=== PATIENT | male | born 1945 | race Caucasian/White ===

== ENCOUNTER 2018-10-14 17:03 | Emergency (ER) | payer OTHER ==
[~2018-10-14 17:03] MED LIST: ALPH100C PO; ASPI-1012 PO; ATOR-2 PO; FINA5TAB41 PO; GABA-531 PO; LEVO500T2 PO; LIRA0.6P SQ; LISI-617 PO; MAGOX PO; METO25TA6 PO; OMEP-50 PO; SERT50TA12 PO; TAMS-1 PO; TIOT4MIS3 IH; VITA1TAB39 PO
[2018-10-14 18:22] LABS: BASOPHILS % (AUTO) 1.1 % (0.0-5.0); EOSINOPHILS % (AUTO) 2.8 % (0.0-8.0); HEMATOCRIT 29.7 % (42-54); LYMPHOCYTES % (AUTO) 17.4 % (21.0-51.0); MEAN CORPUSCULAR HEMOGLOBIN 30.8 pg (27.0-33.0); MEAN CORPUSCULAR HGB CONC 33.7 g/dL (32.0-36.0); MEAN CORPUSCULAR VOLUME 91.6 fL (79-99); MONOCYTES % (AUTO) 7.7 % (3.0-13.0); PLATELET COUNT (AUTO) 225 K/uL (130-400); RED BLOOD CELL COUNT(AUTO) 3.25 MIL/uL (4.50-6.20); RED CELL DISTRIBUTION WIDTH 15.4 % (11.0-15.5); WHITE BLOOD COUNT (AUTO) 8.9 K/uL (4.8-10.8)
[2018-10-14 18:32] LABS: CREATININE 1.3 mg/dL (0.5-1.5); POTASSIUM 4.5 mmol/L (3.5-5.1)
[2018-10-14 18:36] LABS: INR 1.04 (0.85-1.15); PARTIAL THROMBOPLASTIN TIME 27.6 SEC (26.3-35.5); PROTHROMBIN TIME 10.9 SEC (9.6-11.6)
[2018-10-14] MEDS ORDERED: CEPHALEXIN 500 MG CAPSULE ONE (19:02)
== END 2018-10-14 19:43 | disposition home or self-care (01) ==
LOC: EDH 17:03
DX: L76.32 Postprocedural hematoma of skin and subcutaneous tissue following other procedure (principal); R22.41 Localized swelling, mass and lump, right lower limb; E78.00 Pure hypercholesterolemia, unspecified; E11.9 Type 2 diabetes mellitus without complications; I25.10 Atherosclerotic heart disease of native coronary artery without angina pectoris; Z85.118 Personal history of other malignant neoplasm of bronchus and lung; Z95.1 Presence of aortocoronary bypass graft
CPT/HCPCS: 36415; 80048; 85025; 85610; 85730; 93970

== ENCOUNTER 2018-10-17 17:18 | Inpatient (IN) | payer OTHER ==
[~2018-10-17] VITALS: Ht 188 cm; Wt 93.6 kg
[2018-10-17 17:39] LABS: BASOPHILS % (AUTO) 0.9 % (0.0-5.0); EOSINOPHILS % (AUTO) 2.8 % (0.0-8.0); HEMATOCRIT 34.4 % (42-54); LYMPHOCYTES % (AUTO) 24.7 % (21.0-51.0); MEAN CORPUSCULAR HEMOGLOBIN 30.5 pg (27.0-33.0); MEAN CORPUSCULAR HGB CONC 33.3 g/dL (32.0-36.0); MEAN CORPUSCULAR VOLUME 91.5 fL (79-99); MONOCYTES % (AUTO) 9.1 % (3.0-13.0); NEUTROPHILS % (AUTO) 62.5 % (40.0-77.0); NUCLEATED RED BLOOD CELLS 0.1 % (0.0-0.19); PLATELET COUNT (AUTO) 267 K/uL (130-400); RED BLOOD CELL COUNT(AUTO) 3.76 MIL/uL (4.50-6.20); RED CELL DISTRIBUTION WIDTH 15.7 % (11.0-15.5); WHITE BLOOD COUNT (AUTO) 7.9 K/uL (4.8-10.8)
[2018-10-17 17:50] LABS: CREATININE 1.3 mg/dL (0.5-1.5); POTASSIUM 4.2 mmol/L (3.5-5.1)
[2018-10-17 17:55] LABS: BILIRUBIN,TOTAL 0.5 mg/dL (0.2-1.0)
[2018-10-17 17:59] LABS: B-TYPE NATRIURETIC PEPTIDE 596 pg/mL (0-100)
[2018-10-17] MEDS ORDERED: SODIUM CHLORIDE 0.9% 1000ML 1,000 ML IV ONE (17:59)
[2018-10-17 20:39] LABS: APPEARANCE,URINE Clear (CLEAR); BILIRUBIN,URINE Negative (NEGATIVE); COLOR,URINE Dark Yellow (YELLOW); GLUCOSE, URINE (UA) Negative (NEGATIVE); KETONES,URINE Negative (NEGATIVE); LEUKOCYTE ESTERASE ,URINE Negative (NEGATIVE); NITRATE,URINE Negative (NEGATIVE); OCCULT BLOOD,URINE Negative (NEGATIVE); PROTEIN,URINE Negative (NEGATIVE)
[2018-10-17 23:30] VITALS: BP 141/78
[2018-10-17] MEDS ORDERED: KEFLEX PO (23:58)
[2018-10-18] MEDS ORDERED: MORPHINE SULFATE 2 MG/ML 1ML SYG IV PRN (02:45)
[2018-10-18] MEDS ORDERED: SODIUM CHLORIDE 0.9% 1000ML 1,000 ML IV SCH ×2 (02:45→04:45)
[2018-10-18] MEDS ORDERED: MORPHINE SULFATE 4 MG/1ML SYG IV PRN (02:45)
[2018-10-18 04:00] VITALS: BP 135/86
[2018-10-18] MEDS ORDERED: POTASSIUM CHLORIDE 20MEQ/100ML 100 ML IV PRN (04:30)
[2018-10-18] MEDS ORDERED: FUROSEMIDE 10 MG/ML 4ML VIAL IV SCH ×2 (04:30→08:00)
[2018-10-18] MEDS ORDERED: POTASSIUM CHLORIDE 20 MEQ ERTAB PO PRN (04:30)
[2018-10-18] MEDS ORDERED: LIDOCAINE HCL-MPF 1% 2ML VIAL IV PRN (04:30)
[2018-10-18] MEDS ORDERED: POTASSIUM CHLORIDE 10% ELIXIR 20 MEQ/15 ML UDCUP PO PRN (04:30)
[2018-10-18] MEDS ORDERED: ONDANSETRON HCL 4 MG/2 ML VIAL IVP PRN (04:45)
[2018-10-18 05:56] LABS: BASOPHILS % (AUTO) 1.1 % (0.0-5.0); EOSINOPHILS % (AUTO) 3.5 % (0.0-8.0); HEMATOCRIT 32.4 % (42-54); MEAN CORPUSCULAR HEMOGLOBIN 30.8 pg (27.0-33.0); MEAN CORPUSCULAR HGB CONC 34.1 g/dL (32.0-36.0); MEAN CORPUSCULAR VOLUME 90.3 fL (79-99); MONOCYTES % (AUTO) 10.6 % (3.0-13.0); NEUTROPHILS % (AUTO) 59.8 % (40.0-77.0); PLATELET COUNT (AUTO) 234 K/uL (130-400); RED BLOOD CELL COUNT(AUTO) 3.59 MIL/uL (4.50-6.20); RED CELL DISTRIBUTION WIDTH 15.5 % (11.0-15.5)
[2018-10-18 06:12] LABS: ALBUMIN 2.4 g/dL (3.5-5.0); BILIRUBIN,TOTAL 0.4 mg/dL (0.2-1.0); CREATININE 1.1 mg/dL (0.5-1.5); POTASSIUM 4.2 mmol/L (3.5-5.1); TOTAL PROTEIN, SERUM 6.1 g/dL (6.0-8.3)
[2018-10-18] MEDS: IPRATROPIUM/ALBUTEROL SULFATE 3 ML SOLUTION IH SCH ×3 (06:12→23:55)
[2018-10-18 06:29] LABS: B-TYPE NATRIURETIC PEPTIDE 704 pg/mL (0-100)
[2018-10-18 07:00] VITALS: BP 145/90
[2018-10-18] MEDS ORDERED: METOPROLOL TARTRATE 25 MG TAB PO SCH (09:00)
[2018-10-18 11:00] VITALS: BP 143/96
[2018-10-18] MEDS ORDERED: METF-446 PO (11:22)
[2018-10-18] MEDS ORDERED: ASCO10007 PO (11:22)
[2018-10-18] MEDS ORDERED: MECL-111 PO (11:22)
[2018-10-18] MEDS ORDERED: CALC600T12 PO (11:22)
[2018-10-18] MEDS ORDERED: CHRO1000 PO (11:22)
[2018-10-18] MEDS ORDERED: INSLAN SQ (11:22)
--- NOTE | 2018-10-18 11:30 | NUR ---
NOTE PATIENT IS OT OF ROOM FOR VQ SCAN. HE HAS BEEN WAITING FOR DR CASTRO TO MAKE ROUNDS ALL MORNING. HE WAS CONSULTED LAST NIGHT AND PLACED ON HIS CENSUS. I HAVE PAGED HIS DOUBLING MACHINE OPERATOR RAMONA BUT HAVE NOT GOTTEN A RESPONSE. I HAVE CALLED HEART CLINIC OFFICE AND LEFT MESSAGE ON THE CONSULTS CHEMICAL EQUIPMENT REPAIRER AND SHE WILL CALL ME BACK REGARDING THIS MATTER. HOME MEDS CLARIFIED OR RATHER RECONCILED WITH PATIENT'S HOME MEDS LIST.
--- NOTE | 2018-10-18 11:56 | NUR ---
NOTE CALLED FROM HEART CLINIC CONSULTS TOMOGRAPHY TECHNOLOGIST CAME IN AND SHE IS GOING TO CALL DR DIMAOND TO COME SEE THE PATIENT FOR HE WAS INFORMED LAST NIGHT BUT DID NOT COME TO SEE THE PATIENT.
[2018-10-18] MEDS: LEVOFLOXACIN 750 MG/D5W 150 ML 150 ML IV SCH (13:19)
[2018-10-18] MEDS: FAMOTIDINE/PF 20 MG/2 ML VIAL IV SCH ×2 (13:21→20:54)
[2018-10-18] MEDS: VITAMIN B COMPLEX 1 CAPSULE PO SCH (13:22)
[2018-10-18] MEDS: SERTRALINE HCL 50 MG TABLET PO SCH (13:22)
[2018-10-18] MEDS ORDERED: METOPROLOL TARTRATE 25 MG TAB ONE (14:36)
[2018-10-18] MEDS: ENOXAPARIN SODIUM 30 MG/0.3 ML SQ SCH (14:49)
--- NOTE | 2018-10-18 15:24 | NUR ---
RD NOTIFICATION PRIMARY DIAGNOSIS: VOLUME DEPLETION, PLEURAL EFFUSION, DYSPNEA. HX: CAD, HTN, DM, LUNG CANCER. BMI IS 26.2; CLASSIFIED OVERWEIGHT. CURRENT DIET: HEART HEALTHY. MEDS: LOVENOX, DUONEB, ZOFRAN, PEPCID, PROSCAR, NEURONTIN, LOPRESSOR, ZOLOFT, FLOMAX, LIPITOR, B COMPLEX, LASIX. LABS: D-DIMER 4194, Mg 1.2, Ca 8.3, BNP 704, ALB 2.4, ALK PHOSPHATASE 161. PO INTAKE POOR AND HAS NO APPETITE X1 MONTH PER . USUAL BODY WEIGHT IS 222-225# PER PT. DIARRHEA HAS RESOLVED. PHYSICAL EVIDENCE OF MUSCLE AND FAT LOSS. RD RECOMMENDS TO CONTINUE CURRENT DIET. OFFER GLUCERNA AT ALL MEALS. RECOMMEND APPETITE STIMULANT. RD WILL CONTINUE TO MONITOR AND FOLLOW UP NEEDED. PLEASE NOTIFY RD IF ANY OTHER NUTRITIONAL CONCERNS ARISE. THANK YOU. Addendum: 10/18/18 at [address] Amended: Links added.
[2018-10-18 16:00] VITALS: BP 127/64
[2018-10-18] MEDS ORDERED: METOPROLOL TARTRATE 25 MG TAB PO STA (16:00)
[2018-10-18 19:48] VITALS: BP 99/78
[2018-10-18] MEDS ORDERED: FUROSEMIDE 10 MG/ML 4ML VIAL ONE (20:44)
[2018-10-18] MEDS: GABAPENTIN 300 MG CAPSULE PO SCH (20:56)
[2018-10-18] MEDS: TAMSULOSIN HCL 0.4 MG CAP.ER.24H PO SCH (20:56)
[2018-10-18] MEDS: FUROSEMIDE 10 MG/ML 4ML VIAL IV SCH (20:56)
[2018-10-18] MEDS: FINASTERIDE 5 MG TABLET PO SCH (20:59)
[2018-10-18] MEDS: METOPROLOL TARTRATE 25 MG TAB PO SCH (20:59)
[2018-10-18] MEDS: ATORVASTATIN CALCIUM 40 MG TABLET PO SCH (21:00)
[2018-10-19 00:25] VITALS: BP 144/83
[2018-10-19 03:42] VITALS: BP 136/79
[2018-10-19 05:31] LABS: HEMATOCRIT 33.5 % (42-54); MEAN CORPUSCULAR HEMOGLOBIN 30.5 pg (27.0-33.0); MEAN CORPUSCULAR HGB CONC 33.6 g/dL (32.0-36.0); MEAN CORPUSCULAR VOLUME 90.9 fL (79-99); PLATELET COUNT (AUTO) 230 K/uL (130-400); RED BLOOD CELL COUNT(AUTO) 3.69 MIL/uL (4.50-6.20); RED CELL DISTRIBUTION WIDTH 15.2 % (11.0-15.5); WHITE BLOOD COUNT (AUTO) 8.1 K/uL (4.8-10.8)
[2018-10-19 05:41] LABS: CREATININE 1.2 mg/dL (0.5-1.5)
[2018-10-19] MEDS: IPRATROPIUM/ALBUTEROL SULFATE 3 ML SOLUTION IH SCH ×4 (06:42→23:21)
[2018-10-19 07:30] VITALS: BP 100/59
[2018-10-19 11:00] VITALS: BP 146/75
[2018-10-19] MEDS: FAMOTIDINE/PF 20 MG/2 ML VIAL IV SCH ×2 (11:28→20:16)
[2018-10-19] MEDS: FUROSEMIDE 10 MG/ML 4ML VIAL IV SCH ×3 (11:28→20:17)
[2018-10-19] MEDS: LEVOFLOXACIN 750 MG/D5W 150 ML 150 ML IV SCH (11:29)
[2018-10-19] MEDS: ENOXAPARIN SODIUM 30 MG/0.3 ML SQ SCH (11:29)
[2018-10-19] MEDS: METOPROLOL TARTRATE 25 MG TAB PO SCH ×2 (11:29→20:15)
[2018-10-19] MEDS: VITAMIN B COMPLEX 1 CAPSULE PO SCH (11:29)
[2018-10-19] MEDS: SERTRALINE HCL 50 MG TABLET PO SCH (11:29)
[2018-10-19 16:00] VITALS: BP 128/61
--- NOTE | 2018-10-19 16:16 | NUR ---
INITIAL MET W PT WITH SPOUSE AT BEDSIDE, PT AND SOUSE DISCOURAGED RE READMISSIONS, UNABLE TO FEEL BETTER, HEART RATE, PLEURAL EFFUSIONS, ETC. STATES WERE NOT GIVEN OPTIONS ON DISCHARGE FOR HH, PLACEMENT, ETC. DISCUSSED HIS WEAKNESS, INABILITY TO COMPLETE HIS ADLS WITHOUT ASSISTANCE, ETC. PT AGREEABLE TO OUT/IN PT REHAB /CARDIAC REHAB CALL TO DALJIT AT [facility]. [facility] HAVE IRU EVAL AND SUBMIT TO SEE IF APPROVED CALL TO [facility]- [facility] PT WOULD HAVE LARGE DEDUCTIBLE AND [place] [facility] [place] [facility]. CALL TO ARACELI AT IRU, DISCUSSED PATIENT , WILL SUBMIT IF PT GIVES CONSENT CALL TO [facility], ORDER FOR MAGNESIUM PROTOCOL TO BE PUT IN BY HER AND FOR PT EVAL Addendum: 10/19/18 at 1625 by ISABELLA BRAR RN CM Amended: Links added.
[2018-10-19] MEDS ORDERED: MAGNESIUM OXIDE 400 MG TABLET PO SCH (17:15)
--- NOTE | 2018-10-19 17:58 | NUR ---
NOTE PATIENT HAS BEEN STABLE. HAS BEEN GETTING UP TO BATHROOM AND DOES NOT C/O INCREASED SOB. BBS CLEAR TO ALL LOBES AND ABSENT TO RIGHT LOWER LOBE, HAS H/O LOBECTOMY FOR CANCER. DENIES CHEST PAIN AND HAS REMAINED WITH TELEMETRY WITH SR WITH PVC BIGEMINY. CONTINUES WITH METOPROLOL BID 25 MG. HE IS ON ROOM AIR. CARDIOLOGY WAS CONSULTED. DR DIAMOND SAW IM YESTERDAY AND DR LISA RITTER SAW HIM TODAY. HE HAS BEEN REQUESTING TO SPEAK TO HIS WIG SALES CONSULTANT DR CASTRO SINCE ADMISSION AND WAS TOLD BY DR DIAMOND HE WILL NOTIFY HIM BUT HE DID NOT SHOW UP TODAY. I HAVE PAGED DR CASTRO BUT HAS NOT RETURNED MY CALL AND SO HAS CASE MANAGEMENT. WE WILL STAR PATIENT ON MAGNESIUM PROTOCOL AND CONTINUE WITH DAILY WEIGHTS HE SHOULD HAVE BEEN.
[2018-10-19] MEDS: MAGNESIUM 2GM PREMIX 50ML 50 ML IV PRN (18:32)
[2018-10-19 19:00] VITALS: BP 116/69
[2018-10-19] MEDS: FINASTERIDE 5 MG TABLET PO SCH (20:15)
[2018-10-19] MEDS: MAGNESIUM OXIDE 400 MG TABLET PO SCH (20:16)
[2018-10-19] MEDS: ATORVASTATIN CALCIUM 40 MG TABLET PO SCH (20:16)
[2018-10-19] MEDS: TAMSULOSIN HCL 0.4 MG CAP.ER.24H PO SCH (20:16)
[2018-10-19] MEDS: GABAPENTIN 300 MG CAPSULE PO SCH (20:17)
[2018-10-20] VITALS: BP 135/78
[2018-10-20 04:00] VITALS: BP 122/57
[2018-10-20 04:37] LABS: HEMATOCRIT 31.5 % (42-54); MEAN CORPUSCULAR HGB CONC 34.3 g/dL (32.0-36.0); MEAN CORPUSCULAR VOLUME 90.3 fL (79-99); PLATELET COUNT (AUTO) 232 K/uL (130-400); RED BLOOD CELL COUNT(AUTO) 3.49 MIL/uL (4.50-6.20); RED CELL DISTRIBUTION WIDTH 15.9 % (11.0-15.5); WHITE BLOOD COUNT (AUTO) 7.8 K/uL (4.8-10.8)
[2018-10-20 05:09] LABS: CREATININE 1.4 mg/dL (0.5-1.5); MAGNESIUM 1.5 mg/dL (1.80-2.40)
[2018-10-20] MEDS: IPRATROPIUM/ALBUTEROL SULFATE 3 ML SOLUTION IH SCH ×4 (06:59→23:16)
[2018-10-20 07:00] VITALS: BP 129/74
[2018-10-20] MEDS: FUROSEMIDE 10 MG/ML 4ML VIAL IV SCH (08:00)
[2018-10-20] MEDS: FUROSEMIDE 40 MG TABLET PO SCH (09:00)
[2018-10-20] MEDS: FAMOTIDINE/PF 20 MG/2 ML VIAL IV SCH ×2 (09:03→21:35)
[2018-10-20] MEDS: VITAMIN B COMPLEX 1 CAPSULE PO SCH (09:03)
[2018-10-20] MEDS: LEVOFLOXACIN 750 MG/D5W 150 ML 150 ML IV SCH (09:03)
[2018-10-20] MEDS: SERTRALINE HCL 50 MG TABLET PO SCH (09:04)
[2018-10-20] MEDS: MAGNESIUM OXIDE 400 MG TABLET PO SCH ×2 (09:04→21:00)
[2018-10-20] MEDS: METOPROLOL TARTRATE 25 MG TAB PO SCH ×2 (09:04→21:36)
[2018-10-20] MEDS: ENOXAPARIN SODIUM 30 MG/0.3 ML SQ SCH (09:05)
[2018-10-20 11:00] VITALS: BP 129/76
[2018-10-20] MEDS: INSULIN HUMULIN R 100 UNIT/ML 3ML SQ SCH ×3 (11:30→21:00)
--- NOTE | 2018-10-20 14:00 | NUR ---
REFERRAL TO [facility] AND ASSESSMENT DONE BOYD STATES THAT PT WITH MULTIPLE QUESTIONS DURING THE ASSESSMENT- NOT SURE IF [facility] WILL [facility], BUT WILL TRY. PTS O2 SATS DROP DURING EXCERCISE- NOT ON O2 WHEN AT REST IN ROOM. IF [facility] DECLINES INPT REHAB, WILL NEED TO DO THE HOME OXYGEN EVAL Addendum: 10/20/18 at 1938 by ISABELLA BRAR RN CM Amended: Links added.
[2018-10-20 16:00] VITALS: BP 135/82
[2018-10-20] MEDS: MAGNESIUM 2GM PREMIX 50ML 50 ML IV PRN (16:54)
[2018-10-20 19:00] VITALS: BP 145/68
[2018-10-20] MEDS: TAMSULOSIN HCL 0.4 MG CAP.ER.24H PO SCH (21:00)
[2018-10-20] MEDS: GABAPENTIN 300 MG CAPSULE PO SCH (21:00)
[2018-10-20] MEDS: FINASTERIDE 5 MG TABLET PO SCH (21:36)
[2018-10-20] MEDS: ATORVASTATIN CALCIUM 40 MG TABLET PO SCH (21:36)
[2018-10-20] MEDS: INSULIN GLARGINE 100 UNITS/ML 10 ML VIAL SQ SCH (21:45)
[2018-10-21] VITALS: BP 144/88
[2018-10-21 04:00] VITALS: BP 121/51
[2018-10-21 05:54] LABS: HEMATOCRIT 33.9 % (42-54); MEAN CORPUSCULAR HEMOGLOBIN 29.9 pg (27.0-33.0); MEAN CORPUSCULAR HGB CONC 32.8 g/dL (32.0-36.0); MEAN CORPUSCULAR VOLUME 91.3 fL (79-99); PLATELET COUNT (AUTO) 213 K/uL (130-400); RED BLOOD CELL COUNT(AUTO) 3.71 MIL/uL (4.50-6.20); RED CELL DISTRIBUTION WIDTH 15.7 % (11.0-15.5); WHITE BLOOD COUNT (AUTO) 7.4 K/uL (4.8-10.8)
[2018-10-21 06:02] LABS: CREATININE 1.4 mg/dL (0.5-1.5); MAGNESIUM 1.8 mg/dL (1.80-2.40); POTASSIUM 4.4 mmol/L (3.5-5.1)
[2018-10-21] MEDS: IPRATROPIUM/ALBUTEROL SULFATE 3 ML SOLUTION IH SCH ×4 (06:46→23:12)
[2018-10-21] MEDS: INSULIN HUMULIN R 100 UNIT/ML 3ML SQ SCH ×4 (06:47→21:42)
[2018-10-21 07:00] VITALS: BP 124/85
--- NOTE | 2018-10-21 09:35 | NUR ---
[facility] Call placed this am to Jessica abarca [facility] to f/u on status of referral. She mentions that at this time they are still pending [facility] auth. CM to f/u on Tuesday. Primary nurse informed.
[2018-10-21] MEDS: FAMOTIDINE/PF 20 MG/2 ML VIAL IV SCH ×2 (10:30→21:43)
[2018-10-21] MEDS: LEVOFLOXACIN 750 MG/D5W 150 ML 150 ML IV SCH (10:30)
[2018-10-21] MEDS: FUROSEMIDE 40 MG TABLET PO SCH (10:30)
[2018-10-21] MEDS: METOPROLOL TARTRATE 25 MG TAB PO SCH ×2 (10:30→21:34)
[2018-10-21] MEDS: VITAMIN B COMPLEX 1 CAPSULE PO SCH (10:30)
[2018-10-21] MEDS: MAGNESIUM OXIDE 400 MG TABLET PO SCH ×2 (10:31→21:34)
[2018-10-21] MEDS: ENOXAPARIN SODIUM 30 MG/0.3 ML SQ SCH (10:38)
[2018-10-21] MEDS: SERTRALINE HCL 50 MG TABLET PO SCH (10:38)
[2018-10-21 11:00] VITALS: BP 137/79
--- NOTE | 2018-10-21 14:11 | NUR ---
Nutrition Follow-up: Pt. on 75gm CCD diet with fair p.o. intake(50-75%), as noted in EMR. Pt. reports good p.o. intake this morning with b'fast meal. Pt. requesting Glucerna supp. with meals as prev. ordered. Labs reviewed(Alb 2.4, BG 217). LBM: 10/18/18. Recommendations: 1) Rec. Glucerna supp. TID with meals. 2) Continue to monitor pt's nutritional status. 3) Consult RD as nutrition concerns arise. Addendum: 10/21/18 at [address] Amended: Links added.
[2018-10-21 16:00] VITALS: BP 118/72
[2018-10-21 19:00] VITALS: BP 143/74
[2018-10-21] MEDS: GABAPENTIN 300 MG CAPSULE PO SCH ×2 (21:00→21:32)
[2018-10-21] MEDS: FINASTERIDE 5 MG TABLET PO SCH ×2 (21:00→21:33)
[2018-10-21] MEDS: TAMSULOSIN HCL 0.4 MG CAP.ER.24H PO SCH ×2 (21:00→21:33)
[2018-10-21] MEDS: ATORVASTATIN CALCIUM 40 MG TABLET PO SCH (21:33)
[2018-10-21] MEDS: INSULIN GLARGINE 100 UNITS/ML 10 ML VIAL SQ SCH (21:40)
[2018-10-22] VITALS: BP 135/83
[2018-10-22 04:00] VITALS: BP 107/53
[2018-10-22] MEDS: IPRATROPIUM/ALBUTEROL SULFATE 3 ML SOLUTION IH SCH ×4 (06:38→23:26)
[2018-10-22] MEDS: INSULIN HUMULIN R 100 UNIT/ML 3ML SQ SCH ×4 (06:40→20:26)
[2018-10-22 07:00] VITALS: BP 100/45
--- NOTE | 2018-10-22 08:45 | NUR ---
PATIENT EXPRESSED SOME CONCERNS AND SAID THAT HE HAS QUESTIONS FOR DR CASTRO.THE PA FOR DR HICKS WAS HERE TO SEE THE PATIENT BUT HE WANTS TO SEE THE DOCTOR. CHARGE NURSE KENYA WAS MADE AWARE. REASSURANCE OF CARE WAS PROVIDED TO THE PATIENT.
[2018-10-22] MEDS: FAMOTIDINE/PF 20 MG/2 ML VIAL IV SCH ×2 (09:22→20:21)
[2018-10-22] MEDS: VITAMIN B COMPLEX 1 CAPSULE PO SCH (09:23)
[2018-10-22] MEDS: SERTRALINE HCL 50 MG TABLET PO SCH (09:23)
[2018-10-22] MEDS: METOPROLOL TARTRATE 25 MG TAB PO SCH ×2 (09:24→20:22)
[2018-10-22] MEDS: FUROSEMIDE 40 MG TABLET PO SCH (09:25)
[2018-10-22] MEDS: MAGNESIUM OXIDE 400 MG TABLET PO SCH ×2 (09:25→20:22)
[2018-10-22] MEDS: LEVOFLOXACIN 750 MG/D5W 150 ML 150 ML IV SCH (09:27)
[2018-10-22] MEDS: ENOXAPARIN SODIUM 30 MG/0.3 ML SQ SCH (09:39)
[2018-10-22 11:00] VITALS: BP 131/78
--- NOTE | 2018-10-22 13:30 | NUR ---
AMBULATING WITH PHYSICAL THERAPY.
[2018-10-22 16:00] VITALS: BP 134/69
[2018-10-22 19:00] VITALS: BP 128/72
[2018-10-22] MEDS: ATORVASTATIN CALCIUM 40 MG TABLET PO SCH (20:22)
[2018-10-22] MEDS: INSULIN GLARGINE 100 UNITS/ML 10 ML VIAL SQ SCH (20:25)
[2018-10-23] VITALS (7 sets, daily range): BP systolic 111–138; BP diastolic 66–88
[2018-10-23] MEDS: INSULIN HUMULIN R 100 UNIT/ML 3ML SQ SCH ×4 (05:56→20:29)
[2018-10-23] MEDS: IPRATROPIUM/ALBUTEROL SULFATE 3 ML SOLUTION IH SCH ×4 (06:00→23:52)
--- NOTE | 2018-10-23 08:00 | NUR ---
DR CASTRO CAME IN TO SEE THE PATIENT AND EXPLAINED TO HIM THE PLAN OF CARE. PENDING DR SIEGEL AND DR DIALLO TO SEE THE PATIENT.
[2018-10-23] MEDS: LEVOFLOXACIN 750 MG/D5W 150 ML 150 ML IV SCH (09:10)
[2018-10-23] MEDS: VITAMIN B COMPLEX 1 CAPSULE PO SCH (09:10)
[2018-10-23] MEDS: FAMOTIDINE/PF 20 MG/2 ML VIAL IV SCH ×2 (09:10→20:17)
[2018-10-23] MEDS: FUROSEMIDE 40 MG TABLET PO SCH (09:10)
[2018-10-23] MEDS: SERTRALINE HCL 50 MG TABLET PO SCH (09:11)
[2018-10-23] MEDS: METOPROLOL TARTRATE 25 MG TAB PO SCH ×2 (09:11→20:20)
[2018-10-23] MEDS: MAGNESIUM OXIDE 400 MG TABLET PO SCH ×2 (09:11→20:19)
[2018-10-23] MEDS: ENOXAPARIN SODIUM 30 MG/0.3 ML SQ SCH (09:18)
--- NOTE | 2018-10-23 09:20 | NUR ---
SPOKE TO PT/SPOUSE RE DISCHARGE PLAN AT 920 CHART REVIEWED, NOTED INCREASE IN O2 SAT AND INCREASE IN EXERCISE TOLERANCE 300 FT YESTERDAY WITH NO DROP IN O2 SAT NOTED. BOTH PT ANS SPOUSE STATE THAT HE IS NOT READY TO GO HOME AND IS MUCH TOO WEAK, WILL REVIEW PT NOTES FROM TODAY WHEN ENTERED.ADVISED PT/SPOUSE THAT INPATIENT REHAB MIGHT NOT BE APPROVED VERBALIZED POOR UNDERSTANDING AND DECLINED TO CITE A PLAN B FOR DISCHARGE NEEDS.
--- NOTE | 2018-10-23 10:56 | NUR ---
T/C PLACED TO DR DIALLO HE SAID THAT HE WILL COME TO ASSESS THE PATIENT DURING HIS ROUNDING.
--- NOTE | 2018-10-23 13:55 | NUR ---
[facility] INFO TO [facility]ERRAL RE[facility]ED
--- NOTE | 2018-10-23 16:15 | NUR ---
SUMMARY OF DISCHARGE PLANS CALL RECD FORM SD RE ACCEPTANCE. CALL TO BOYD AT [facility], RE TELEMETRY MONITORING, STATES NO TELEMONITORING AVAILABLE IN THE REHAB. CALL TO DR. SIEGEL OFFICE- ASKED ABOUT HOLTER, ADVISED THERE IS A WAITING PERIOD ASKED DR. SIEGEL RE CRITERIA FOR LOOP RECORD, RECRD CALL BACK, NO LOOP RECORDS,NO HOLTER NEEDED DURING REHAB, GO TO REHAB, COME TO OFFICE AFTER REHAB TO GET HOLTER SET UP PT AND FAMILY VERBALIZED UNDERSTANDING Addendum: 10/23/18 at 1720 by ISABELLA BRAR RN CM Amended: Links added.
[2018-10-23] MEDS: ATORVASTATIN CALCIUM 40 MG TABLET PO SCH (20:18)
[2018-10-23] MEDS: TAMSULOSIN HCL 0.4 MG CAP.ER.24H PO SCH (20:18)
[2018-10-23] MEDS: GABAPENTIN 300 MG CAPSULE PO SCH (20:18)
[2018-10-23] MEDS: FINASTERIDE 5 MG TABLET PO SCH (20:19)
--- NOTE | 2018-10-23 20:20 | NUR ---
MEDS SHIFT ASSESSMENT DONE, PLEASE REFER TO CHART. DUE MEDS ADMINISTERED, TOLERATED WELL. KEPT RESTED AND COMFORTABLE IN BED. CALL LIGHT WITHIN REACH. WILL MONITOR PT. Addendum: 10/24/18 at 0201 by SIENNA MADERA RN RN Amended: Links added.
[2018-10-23] MEDS ORDERED: INSULIN GLARGINE 100 UNITS/ML 10 ML VIAL SQ SCH (21:00)
--- NOTE | 2018-10-24 02:00 | NUR ---
ROUNDS PT RESTING WELL, FAIRLY ASLEEP WITH RESPIRATIONS EVEN AND UNLABORED. NO NOTED DISTRESS. KEPT UNDISTURBED FOR NOW. WILL MONITOR PT. CALL LIGHT WITHIN REACH.
[2018-10-24 03:00] VITALS: BP 112/85
--- NOTE | 2018-10-24 05:06 | NUR ---
VERIFIED HILDA GARCIA FOR HOSPITALIST, INFORMED ABOUT MEDS NOT ALREADY BY PT. MED CLARIFICATION DONE AND NEW MED ORDER GIVEN BY DIRECTOR CORRECTIONAL AGENCY.
[2018-10-24] MEDS: INSULIN HUMULIN R 100 UNIT/ML 3ML SQ SCH ×2 (06:19→12:50)
[2018-10-24] MEDS: IPRATROPIUM/ALBUTEROL SULFATE 3 ML SOLUTION IH SCH ×2 (06:51→11:25)
[2018-10-24 07:00] VITALS: BP 134/77
--- NOTE | 2018-10-24 08:00 | NUR ---
PT AAO X3 REVIEW CARE, ASSESSMENT DONE TO HIS LEGS, AND FEET, WITH STRONG PULSES NOTED TO HIS RT FOOT. PT HAS A AREA TO HIS INNER AREA OF HIS RT LEG, CALF AREA TOWARD BACK OF HIS RT THIGH SOFT TO TOUCH, NOTED NO DISCOLORATION OR PT C/O OF IT HURTING, CMS PRESENT TO HIS . TOES . REVIEW CIRCULATIONS NO C/O OF FOOT OR LEG PAIN TELE MONITOR ON . AT PRESENT NO C/O OF CHEST PAIN. BED LEVELDOWN AND CALL LIGHT IN REACH..
[2018-10-24] MEDS: VITAMIN B COMPLEX 1 CAPSULE PO SCH (08:53)
[2018-10-24] MEDS: FUROSEMIDE 40 MG TABLET PO SCH (08:53)
[2018-10-24] MEDS: SERTRALINE HCL 50 MG TABLET PO SCH (08:54)
[2018-10-24] MEDS: METOPROLOL TARTRATE 25 MG TAB PO SCH (08:54)
[2018-10-24] MEDS: FAMOTIDINE/PF 20 MG/2 ML VIAL IV SCH (08:55)
--- NOTE | 2018-10-24 09:00 | NUR ---
DC TO [facility] TODAY WENT OVER DC PLAN WITH PRIMARY RN. PENDING DC ORDERS/ REPORT
[2018-10-24] MEDS: LEVOFLOXACIN 750 MG/D5W 150 ML 150 ML IV SCH (09:14)
[2018-10-24] MEDS: MAGNESIUM OXIDE 400 MG TABLET PO SCH (09:25)
[2018-10-24] MEDS: ENOXAPARIN SODIUM 30 MG/0.3 ML SQ SCH (09:25)
[2018-10-24 11:00] VITALS: BP 125/71
--- NOTE | 2018-10-24 14:30 | NUR ---
REPORT GIVEN TO NURSE. LOGAN FRANCISCO RN . [facility].
--- NOTE | 2018-10-24 15:50 | NUR ---
PT DISCHARGE SUMMARY. REVIEW. [place] .[place] [facility] . TAKING HIM THERE . SL TO HIS LT. FOREARM DC . NOTED NO HEMATOMA OR REDNESS TO SITE SM DRSG APPLICATION . TELE MONITOR OFF .
--- NOTE | 2018-10-24 16:00 | NUR ---
DR. DIALLO WAS CALLED , SPOKE WITH H IS NURSE JOHANNA FLOYD RN REGARDING DISCHARGE SUMMARY AND WHERE HE WAS GOING FOR FOLLOWUP CARE AT [facility] . DISCHARGE WITH . DENIES ANY DISCOMFORT WHEN AMBULATING .
[2018-10-25] MEDS ORDERED: ASPIRIN 325 MG TABLET PO SCH (09:00)
== END 2018-10-24 16:00 | DRG 292 ==
LOC: EDH 17:18 → EDHIP 21:10 → 3AH 23:44
PROVIDERS: ADMIT Internal Medicine; ATTEND Internal Medicine
DX: I11.0 Hypertensive heart disease with heart failure (principal); E46 Unspecified protein-calorie malnutrition; I50.43 Acute on chronic combined systolic (congestive) and diastolic (congestive) heart failure; I49.3 Ventricular premature depolarization; E11.51 Type 2 diabetes mellitus with diabetic peripheral angiopathy without gangrene; I25.5 Ischemic cardiomyopathy; I25.10 Atherosclerotic heart disease of native coronary artery without angina pectoris; E11.65 Type 2 diabetes mellitus with hyperglycemia; Z68.26 Body mass index [BMI] 26.0-26.9, adult; E83.42 Hypomagnesemia; E87.6 Hypokalemia; I87.2 Venous insufficiency (chronic) (peripheral); Z85.118 Personal history of other malignant neoplasm of bronchus and lung; I25.2 Old myocardial infarction; Z80.3 Family history of malignant neoplasm of breast; Z87.891 Personal history of nicotine dependence; Z95.1 Presence of aortocoronary bypass graft; Z95.5 Presence of coronary angioplasty implant and graft; Z79.899 Other long term (current) drug therapy
CPT/HCPCS: 36415; 71045; 78580; 78582; 80048; 80053; 81003; 82948; 83735; 83880; 85025; 85027; 85378; 93005; 93306; 93970; 94640; 94664; 94760; 97039; A4606; A9538; A9540; A9558; G0378; J1650; J1815; J1940; J1956; J3475; J3490; J7030

== ENCOUNTER 2019-11-07 11:15 | Emergency (ER) | payer MEDICARE, OTHER ==
[~2019-11-07 11:15] MED LIST changes: +ASCO100031 PO; +CALC600T15 PO; +CHRO1000 PO; -FINA5TAB41 PO; -GABA-531 PO; +INSLAN SQ; +KEFLEX PO; -LEVO500T2 PO; -LISI-617 PO; +MECL-160 PO; +METF-446 PO; -OMEP-50 PO; +OMEP20CA12 PO; -TAMS-1 PO
[2019-11-07 12:29] LABS: BASOPHILS % (AUTO) 0.5 % (0.0-5.0); EOSINOPHILS % (AUTO) 0.1 % (0.0-8.0); HEMATOCRIT 49.6 % (42-54); LYMPHOCYTES % (AUTO) 6.8 % (21.0-51.0); MEAN CORPUSCULAR HEMOGLOBIN 31.1 pg (27.0-33.0); MEAN CORPUSCULAR HGB CONC 33.5 g/dL (32.0-36.0); MEAN CORPUSCULAR VOLUME 92.9 fL (79-99); MONOCYTES % (AUTO) 4.3 % (3.0-13.0); NEUTROPHILS % (AUTO) 87.4 % (40.0-77.0); PLATELET COUNT (AUTO) 216 K/uL (130-400); RED BLOOD CELL COUNT(AUTO) 5.34 MIL/uL (4.50-6.20); RED CELL DISTRIBUTION WIDTH 13.4 % (11.0-15.5); WHITE BLOOD COUNT (AUTO) 10.4 K/uL (4.8-10.8)
[2019-11-07 12:43] LABS: CREATININE 1.7 mg/dL (0.5-1.5); POTASSIUM 4.2 mmol/L (3.5-5.1)
[2019-11-07 12:44] LABS: INR 0.91 (0.85-1.15); PROTHROMBIN TIME 9.9 SEC (9.6-11.6)
[2019-11-07 12:47] LABS: BILIRUBIN,DIRECT 0.3 mg/dL (0.0-0.3); BILIRUBIN,TOTAL 1.5 mg/dL (0.2-1.0); TOTAL PROTEIN, SERUM 8.7 g/dL (6.0-8.3)
[2019-11-08] MEDS ORDERED: FLUD0.1T2 PO (15:30)
[2019-11-08] MEDS ORDERED: TUMERIC PO (15:30)
[2019-11-08] MEDS ORDERED: FINA5TAB41 PO (15:30)
[2019-11-08] MEDS ORDERED: FERS325 PO (15:30)
== END 2019-11-07 14:11 | disposition home or self-care (01) ==
LOC: EDH 11:15
DX: S09.90XA Unspecified injury of head, initial encounter (principal); M25.551 Pain in right hip; M54.9 Dorsalgia, unspecified; I25.10 Atherosclerotic heart disease of native coronary artery without angina pectoris; E11.9 Type 2 diabetes mellitus without complications; E78.00 Pure hypercholesterolemia, unspecified; Z98.890 Other specified postprocedural states; Z95.1 Presence of aortocoronary bypass graft; Z86.718 Personal history of other venous thrombosis and embolism; Z87.891 Personal history of nicotine dependence; Z85.118 Personal history of other malignant neoplasm of bronchus and lung; W18.39XA Other fall on same level, initial encounter; Y93.01 Activity, walking, marching and hiking; Y92.89 Other specified places as the place of occurrence of the external cause; Y99.8 Other external cause status
CPT/HCPCS: 36415; 70450; 72125; 72192; 80048; 80076; 82550; 84484; 85025; 85610; 85730; 93005

== ENCOUNTER 2019-11-09 06:25 | Day surgery (SDC) | payer OTHER ==
[2019-11-07 10:45] VITALS: BP 92/82
[2019-11-07 11:24] LABS: BASOPHILS % (AUTO) 0.5 % (0.0-5.0); EOSINOPHILS % (AUTO) 0.1 % (0.0-8.0); HEMATOCRIT 49.6 % (42-54); LYMPHOCYTES % (AUTO) 6.2 % (21.0-51.0); MEAN CORPUSCULAR HEMOGLOBIN 30.7 pg (27.0-33.0); MEAN CORPUSCULAR HGB CONC 33.1 g/dL (32.0-36.0); MEAN CORPUSCULAR VOLUME 92.9 fL (79-99); MONOCYTES % (AUTO) 4.7 % (3.0-13.0); NEUTROPHILS % (AUTO) 87.8 % (40.0-77.0); PLATELET COUNT (AUTO) 225 K/uL (130-400); RED BLOOD CELL COUNT(AUTO) 5.34 MIL/uL (4.50-6.20); RED CELL DISTRIBUTION WIDTH 13.3 % (11.0-15.5); WHITE BLOOD COUNT (AUTO) 11.7 K/uL (4.8-10.8)
[2019-11-07 11:40] LABS: CREATININE 1.6 mg/dL (0.5-1.5); POTASSIUM 5.2 mmol/L (3.5-5.1)
[2019-11-07 11:51] LABS: INR 0.95 (0.85-1.15); PROTHROMBIN TIME 10.3 SEC (9.6-11.6)
[2019-11-07 12:07] LABS: PARTIAL THROMBOPLASTIN TIME 26.7 SEC (26.3-35.5)
--- NOTE | 2019-11-08 15:37 | NUR ---
Spoke to Allan CONNER and advised him if k 5.2, bun 27, darkroom technician 1.6, wbc 11.7, no new orders okay to proceed.
[~2019-11-09] VITALS: Ht 188 cm; Wt 86.4 kg
[2019-11-09] VITALS (10 sets, daily range): BP systolic 131–157; BP diastolic 70–94
[~2019-11-09 06:25] MED LIST changes: -ALPH100C PO; -ASCO100031 PO; -CHRO1000 PO; +FERS325 PO; +FINA5TAB41 PO; +FLUD0.1T2 PO; -KEFLEX PO; -MAGOX PO; -MECL-160 PO; -TIOT4MIS3 IH; +TUMERIC PO
[2019-11-09] MEDS ORDERED: CEFAZOLIN SODIUM 1 GM VIAL IVP ONE (08:00)
[2019-11-09] MEDS ORDERED: SODIUM CHLORIDE 0.9% 1000ML 1,000 ML IV ONE (08:20)
[2019-11-09] MEDS ORDERED: LIDOCAINE HCL 1% MDV 50ML VIAL ONE (08:29)
[2019-11-09] MEDS ORDERED: BUPIVACAINE/PF 0.25% 30ML VIAL IJ ONE (08:29)
[2019-11-09] MEDS ORDERED: MIDAZOLAM HCL 1 MG/ML 2ML VIAL ONE ×2 (08:29→09:12)
[2019-11-09] MEDS ORDERED: CEFAZOLIN SODIUM 1 GM VIAL ONE (08:29)
[2019-11-09] MEDS ORDERED: MEPERIDINE-PF 25 MG/ML SYG ONE ×2 (08:29→09:12)
[2019-11-09] MEDS ORDERED: DEXTROSE 50%-WATER 50 ML DISP.SYRIN IV PRN (10:15)
[2019-11-09] MEDS ORDERED: ONDANSETRON HCL 4 MG/2 ML VIAL IV PRN (10:15)
--- NOTE | 2019-11-09 10:45 | NUR ---
ASSESSMENT RECEIVED PT FROM FABRIC WORKER SUPERVISOR PERSONNEL MARGARET AVENDAÑO. PT DOING WELL. DENIES ANY PAIN. PRESSURE DRSG APPLIED TO LEFT UPPER CHEST. SLING IN PLACE TO LEFT ARM. INSTRUCTED PT ON BEDREST UNTIL 1500. VERBALIZED UNDERSTANDING.
--- NOTE | 2019-11-09 11:00 | NUR ---
SITE CHECK SITE TO LEFT UPPER CHEST SOFT TO TOUCH. PRESSURE DRSG TO CHEST INTACT. ICE BAG TO CHEST.
--- NOTE | 2019-11-09 11:15 | NUR ---
SITE CHECK SITE TO LEFT UPPER CHEST SOFT TO TOUCH. PRESSURE DRSG TO CHEST INTACT. ICE BAG TO CHEST.
[2019-11-09] MEDS ORDERED: INSULIN HUMULIN R 100 UNIT/ML 3ML SQ SCH (11:30)
--- NOTE | 2019-11-09 11:30 | NUR ---
SITE CHECK SITE TO LEFT UPPER CHEST SOFT TO TOUCH. PRESSURE DRSG TO CHEST INTACT. ICE BAG TO CHEST.
--- NOTE | 2019-11-09 11:45 | NUR ---
SITE CHECK SITE TO LEFT UPPER CHEST SOFT TO TOUCH. PRESSURE DRSG TO CHEST INTACT. ICE BAG TO CHEST.
--- NOTE | 2019-11-09 12:15 | NUR ---
SITE CHECK SITE TO LEFT UPPER CHEST DRY AND INTACT. PRESSURE DRSG IN PLACE. LEFT ARM IN SG
--- NOTE | 2019-11-09 12:45 | NUR ---
SITE CHECK SITE TO LEFT UPPER CHEST DRY AND INTACT. PRESSURE DRSG IN PLACE. LEFT ARM IN SG
--- NOTE | 2019-11-09 13:45 | NUR ---
SITE CHECK SITE TO LEFT UPPER CHEST DRY AND INTACT. PRESSURE DRSG IN PLACE. LEFT ARM IN SG
--- NOTE | 2019-11-09 13:54 | NUR ---
CXRAY INFORMED DR. CASTRO OF ABNORMAL CHEST XRAY. NO ORDERS RECEIVED. PROCEED WITH DISCHARGE HOME.
--- NOTE | 2019-11-09 13:56 | NUR ---
DISCHARGE DISCHARGE INSTRUCTIONS GIVEN TO ALONG WITH PRESCRIPTION. NO OTHER QUESTIONS At THIS TIME.
--- NOTE | 2019-11-09 14:45 | NUR ---
SITE CHECK SITE TO LEFT UPPER CHEST DRY AND INTACT. PRESSURE DRESSING IN PLACE. LEFT ARM IN SLING.
--- NOTE | 2019-11-09 14:50 | NUR ---
PRESSURE DRESSING REMOVED. 4X4 GAUZE AND OPSITE IN PLACE. MINIMAL AMOUNT OF LIGHT PINK BLOOD NOTED ON OPSITE DRESSING. NO HEMATOMA NOTED.
[2019-11-09] MEDS ORDERED: CEFAZOLIN SODIUM 1 GM VIAL IVP SCH (15:00)
--- NOTE | 2019-11-09 15:05 | NUR ---
PATIENT DISCHARGE FROM FACILITY VIA WHEELCHAIR BY NURSE AND ASSISTED INTO PRIVATE VEHICLE DRIVEN BY SPOUSE.
== END 2019-11-09 15:05 | disposition home or self-care (01) ==
LOC: DAH 06:25
PROVIDERS: ATTEND Internal Medicine Cardiovascular Disease
DX: I25.5 Ischemic cardiomyopathy (principal); I25.10 Atherosclerotic heart disease of native coronary artery without angina pectoris; E78.5 Hyperlipidemia, unspecified; E11.42 Type 2 diabetes mellitus with diabetic polyneuropathy; M54.17 Radiculopathy, lumbosacral region; E11.22 Type 2 diabetes mellitus with diabetic chronic kidney disease; I12.9 Hypertensive chronic kidney disease with stage 1 through stage 4 chronic kidney disease, or unspecified chronic kidney disease; N18.9 Chronic kidney disease, unspecified; Z85.118 Personal history of other malignant neoplasm of bronchus and lung; Z79.01 Long term (current) use of anticoagulants; Z79.4 Long term (current) use of insulin; Z79.899 Other long term (current) drug therapy
CPT/HCPCS: 33249; 36415; 71045; 80048; 82948 ×2; 85025; 85610; 85730; 93005; A4215; A4221; A4222; A4223 ×3; A4606; A4663; C1721; C1894; C1895 ×2; J0690 ×2; J2175 ×2; J2250 ×2; J3490 ×2; J7030; 99156; 99157